=== PATIENT | male | born 1960 | race African-American/Black ===

== ENCOUNTER 2017-09-17 04:23 | Emergency (ER) | payer SELFPAY ==
[~2017-09-17] VITALS: Ht 175.3 cm; Wt 129.3 kg
[2017-09-17 04:25] VITALS: BP 135/71
--- NOTE | 2017-09-17 05:00 | NUR ---
DR. MATSON AT BEDSIDE FOR EVAL.
[2017-09-17] MEDS ORDERED: HYDROCODONE/APAP 5/325MG 1 EACH TABLET PO ONE (05:30)
[2017-09-17] MEDS ORDERED: HYDROCODONE/APAP 5/325MG 1 EACH TABLET ONE (05:31)
--- NOTE | 2017-09-17 07:05 | NUR ---
Patient discharged to home in stable condition. Written and verbal after care instructions given. Patient verbalizes understanding of instruction. pt left er via wc.
== END 2017-09-17 07:07 | disposition home or self-care (01) ==
LOC: ER 04:26
DX: S42.492 Other displaced fracture of lower end of left humerus (principal); Z59.0 Homelessness; X58.XXXD Exposure to other specified factors, subsequent encounter
CPT/HCPCS: 73080-TC; A4606; Z7610